=== PATIENT | male | born 1960 | race Hispanic/Latino ===

== ENCOUNTER 2018-08-21 15:24 | Emergency (ER) | payer OTHER ==
[~2018-08-21] VITALS: Ht 170.2 cm; Wt 95.3 kg
[2018-08-21] MEDS ORDERED: LIDOCAINE 5% PATCH TP ONE (16:00)
[2018-08-21] MEDS ORDERED: LIDOPATCH1 EACH TOP (16:37)
[2018-08-21] MEDS ORDERED: TYLENOL # 31 EA PO (16:38)
--- NOTE | 2018-08-21 17:43 | Diagnostic Imaging Report ---
Left rib series with chest AP 5 - views HISTORY: Left lower rib pain. COMPARISON: None FINDINGS: No displaced fracture. Osseous alignment is within normal limits. The joint spaces are well-maintained. The soft tissues appear unremarkable. Chest: Mild dilatation of the right hemidiaphragm. Mild perihilar, peribronchial thickening and perihilar streaky densities may reflect viral infection versus reactive airway disease. Cardiomediastinal silhouette within normal limits. No pleural effusion or pneumothorax. IMPRESSION: No acute displaced rib fracture. Possible mild viral infection versus reactive airway disease. Correlate clinically. Signed by: Dr. Ange Gonzalez M.D. on 08/21/2018 5:39 PM
[2018-08-21 18:16] VITALS: BP 141/93
== END 2018-08-21 18:21 | disposition home or self-care (01) ==
LOC: ER 15:24
DX: R07.89 Other chest pain (principal)
CPT/HCPCS: 71101; 99283